=== PATIENT | male | born 1980 | race Caucasian/White ===

== ENCOUNTER 2019-07-26 15:47 | Emergency (ER) | payer OTHER ==
[~2019-07-26] VITALS: Ht 167.6 cm; Wt 88.5 kg
[2019-07-26 15:56] VITALS: Ht 167.6 cm; Wt 88.5 kg
[2019-07-26 16:31] LABS: BASOPHIL % 0.2 % (0-2); PLATELET COUNT 303 x10^3mcL (130-400); RED CELL DISTRIBUTION WIDTH 12.5 % (11.5-14.5)
[2019-07-26 16:49] LABS: CALCIUM 8.4 mg/dL (8.5-10.1); CARBON DIOXIDE 26.2 mmol/L (21-32); CHLORIDE SERUM 104 mmol/L (98-107); CREATININE SERUM 1.1 mg/dL (0.7-1.3); GFR1 > 60 mL/min; GLUCOSE SERUM 176 mg/dL (74-106); POTASSIUM SERUM 3.6 mmol/L (3.5-5.1); SODIUM SERUM 140 mmol/L (136-145)
[2019-07-26 16:54] LABS: ALBUMIN 3.7 g/dL (3.4-5.0); ALKALINE PHOSPHATASE 113 U/L (46-116); ALT/SGPT 76 U/L (16-63); AST/SGOT 41 U/L (15-37); BILIRUBIN TOTAL 0.17 mg/dL (0.20-1.00); CHOLESTEROL 197 mg/dL (<200); TOTAL PROTEIN, SERUM 7.3 g/dL (6.4-8.2)
[2019-07-26 17:37] VITALS: BP 119/57
== END 2019-07-26 17:59 | disposition home or self-care (01) ==
LOC: ED 15:47
DX: M25.532 Pain in left wrist (principal); M25.531 Pain in right wrist; T40.601A Poisoning by unspecified narcotics, accidental (unintentional), initial encounter; F11.90 Opioid use, unspecified, uncomplicated; Y92.89 Other specified places as the place of occurrence of the external cause
CPT/HCPCS: G0480; J2405; Q0092